=== PATIENT | male | born 1995 | race Two or more races ===

== ENCOUNTER 2023-06-10 07:04 | Inpatient (IN) | payer OTHER ==
[~2023-06-10] VITALS: Ht 170.2 cm; Wt 192.3 kg
[2023-06-10] MEDS ORDERED: FUROSEMIDE 40 MG/4 ML VIAL IV ONE (08:30)
[2023-06-10] MEDS ORDERED: ACETAMINOPHEN ES 500 MG TABLET PO ONE (08:30)
[2023-06-10] MEDS ORDERED: FURO40TA5 PO (09:21)
[2023-06-10] MEDS ORDERED: METO-358 PO (09:21)
[2023-06-10] MEDS ORDERED: APIX5TAB PO (09:21)
[2023-06-10] MEDS ORDERED: ACETAMINOPHEN ES 500 MG TABLET ONE (10:11)
[2023-06-10] MEDS ORDERED: FUROSEMIDE 40 MG/4 ML VIAL ONE (10:11)
[2023-06-10 10:16] LABS: BASOPHILS # (AUTO) 0.1 K/uL (0.0-0.2); BASOPHILS % (AUTO) 0.7 % (0.0-2.0); EOSINOPHILS % (AUTO) 0.3 % (0.0-6.0); HEMATOCRIT 45 % (39-51); HEMOGLOBIN 14.9 g/dL (13.5-17.5); LYMPHOCYTES # (AUTO) 0.7 K/uL (0.8-4.8); LYMPHOCYTES % (AUTO) 7.1 % (20.0-44.0); MEAN CORPUSCULAR HEMOGLOBIN 28 PG (26.0-33.0); MEAN CORPUSCULAR HGB CONC 33 g/dl (31.0-36.0); MEAN CORPUSCULAR VOLUME 85 fL (80-96); MONOCYTES # (AUTO) 0.7 K/uL (0.1-1.30); MONOCYTES % (AUTO) 7.1 % (2.0-12.0); NEUTROPHILS # (AUTO) 8.2 K/uL (1.8-8.9); NEUTROPHILS % (AUTO) 84.8 % (43.0-81.0); PLATELET COUNT (AUTO) 274 K/uL (150-450); RED BLOOD CELL COUNT(AUTO) 5.29 MIL/uL (4.5-6.0); RED CELL DISTRIBUTION WIDTH 15.4 % (11.5-15.0); WHITE BLOOD COUNT (AUTO) 9.6 K/uL (4.3-11.0)
[2023-06-10 10:17] LABS: CALCIUM, SERUM 8.7 mg/dL (8.5-10.1); CARBON DIOXIDE 28 mmol/L (21-32); CHLORIDE 100 mmol/L (98-107); CREATININE 1.4 mg/dL (0.6-1.3); GLUCOSE 106 mg/dL (74-106); POTASSIUM 3.5 mmol/L (3.5-5.1); SODIUM SERUM 134 mmol/L (136-145); UREA NITROGEN, BLOOD 14 mg/dL (7-18)
[2023-06-10 10:28] LABS: INR 1.1 (0.91-1.10); PARTIAL THROMBOPLASTIN TIME 27.2 SEC (24.3-34.3); PROTHROMBIN TIME 11.6 SECS (9.2-11.1)
[2023-06-10 10:29] LABS: ALANINE AMINOTRANSFERASE 29 U/L (12-78); ALBUMIN 2.6 g/dL (3.4-5.0); ALKALINE PHOSPHATASE 90 U/L (46-116); ASPARTATE AMINOTRANSFERASE 31 U/L (15-37); BILIRUBIN,DIRECT 0.4 mg/dL (0.0-0.2); BILIRUBIN,TOTAL 1.5 mg/dL (0.2-1.0); NT-PRO BNP 3117 pg/mL (0-125); TOTAL PROTEIN, SERUM 7.6 g/dL (6.4-8.2)
[2023-06-10] MEDS ORDERED: ASPIRIN 325 MG TABLET PO ONE (10:30)
[2023-06-10] MEDS ORDERED: MAGNESIUM HYDROXIDE 30 ML UDC PO PRN (12:00)
[2023-06-10] MEDS ORDERED: ACETAMINOPHEN 325 MG TABLET PO PRN (12:00)
[2023-06-10] MEDS ORDERED: MAG HYDROX/AL HYDROX/SIMETH 30 ML UDC PO PRN (12:00)
[2023-06-10] MEDS ORDERED: HYDROCODONE/APAP 5/325MG TABLET PO PRN (12:00)
[2023-06-10] MEDS ORDERED: TEMAZEPAM 15 MG CAPSULE PO PRN (12:00)
[2023-06-10] MEDS ORDERED: ONDANSETRON HCL/PF 4 MG/2 ML VIAL IVP PRN (12:00)
[2023-06-10] MEDS ORDERED: ENOXAPARIN SODIUM 40 MG/0.4 ML DISP.SYRIN SQ SCH (12:00)
[2023-06-10] MEDS ORDERED: Z GUARD REMEDY 4 OZ OINT TP PRN (12:00)
[2023-06-10] MEDS ORDERED: MORPHINE SULFATE INJ 4 MG/ML DISP.SYRIN IV PRN (12:30)
[2023-06-10] MEDS ORDERED: CEFTRIAXONE 1 G in IV D5W 50 ML IV SCH (13:00)
[2023-06-10] MEDS: METOPROLOL SUCCINATE 50 MG TAB.SR.24H PO SCH (13:45)
[2023-06-10] MEDS ORDERED: CEFTRIAXONE 1GM BAG (ER ONLY) 50 ML IV ONE (14:08)
[2023-06-10] MEDS ORDERED: METOPROLOL SUCCINATE 25 MG TAB.SR.24H ONE (14:08)
[2023-06-10] MEDS ORDERED: ASPIRIN 325 MG TABLET ONE (14:09)
[2023-06-10 20:00] VITALS: BP 139/93; TEMP 98.1; O2SAT 97
[2023-06-10] MEDS: APIXABAN 5 MG TABLET PO SCH (20:21)
[2023-06-10 22:57] VITALS: BP 139/93; TEMP 98.1; O2SAT 97
[2023-06-11 03:45] VITALS: BP 132/108; TEMP 97.9; O2SAT 98
[2023-06-11 07:00] VITALS: BP_SYST 129; BP_SYST 153; BP_DIAS 106; BP_DIAS 74; TEMP 97.7; TEMP 98.4; O2SAT 95; O2SAT 96
[2023-06-11 07:21] LABS: BASOPHILS # (AUTO) 0.1 K/uL (0.0-0.2); BASOPHILS % (AUTO) 0.6 % (0.0-2.0); HEMATOCRIT 44 % (39-51); HEMOGLOBIN 14.5 g/dL (13.5-17.5); LYMPHOCYTES # (AUTO) 0.7 K/uL (0.8-4.8); LYMPHOCYTES % (AUTO) 8.3 % (20.0-44.0); MEAN CORPUSCULAR HEMOGLOBIN 29 PG (26.0-33.0); MEAN CORPUSCULAR HGB CONC 33 g/dl (31.0-36.0); MEAN CORPUSCULAR VOLUME 86 fL (80-96); NEUTROPHILS % (AUTO) 80.1 % (43.0-81.0); PLATELET COUNT (AUTO) 269 K/uL (150-450); RED BLOOD CELL COUNT(AUTO) 5.06 MIL/uL (4.5-6.0); RED CELL DISTRIBUTION WIDTH 15.2 % (11.5-15.0); WHITE BLOOD COUNT (AUTO) 8.7 K/uL (4.3-11.0)
[2023-06-11 08:13] LABS: CALCIUM, SERUM 8.5 mg/dL (8.5-10.1); CREATININE 1.3 mg/dL (0.6-1.3); PHOSPHORUS 4.7 mg/dL (2.5-4.9); POTASSIUM 3.7 mmol/L (3.5-5.1)
[2023-06-11] MEDS: PANTOPRAZOLE 40 MG TABLET.DR PO SCH (08:26)
[2023-06-11 08:40] LABS: THYROID STIMULATING HORMONE 2.121 uIU/mL (0.358-3.74)
[2023-06-11] MEDS ORDERED: FUROSEMIDE 40 MG/4 ML VIAL IV SCH (09:00)
[2023-06-11] MEDS: ASPIRIN EC 325 MG TABLET.DR PO SCH (09:06)
[2023-06-11] MEDS: APIXABAN 5 MG TABLET PO SCH ×2 (09:07→17:01)
[2023-06-11] MEDS: POTASSIUM CHLORIDE 20 MEQ TAB.PRT.SR PO SCH ×3 (09:38→11:21)
[2023-06-11] MEDS: FUROSEMIDE 100 MG/10 ML VIAL IV SCH ×3 (10:20→17:01)
[2023-06-11 11:30] VITALS: BP 131/88; TEMP 100.6; O2SAT 96
[2023-06-11 11:32] VITALS: BP 131/88; TEMP 100.6; O2SAT 96
[2023-06-11] MEDS: METOPROLOL SUCCINATE 50 MG TAB.SR.24H PO SCH (13:22)
[2023-06-11 16:00] VITALS: BP 109/63; TEMP 98.6; O2SAT 100
[2023-06-11 20:30] VITALS: BP 131/94; TEMP 97.5; O2SAT 100
[2023-06-12 00:30] VITALS: BP 129/89; TEMP 98.8; O2SAT 95
[2023-06-12 04:21] VITALS: BP 136/107; O2SAT 100
[2023-06-12 06:39] LABS: BASOPHILS # (AUTO) 0.1 K/uL (0.0-0.2); BASOPHILS % (AUTO) 0.5 % (0.0-2.0); HEMATOCRIT 42 % (39-51); HEMOGLOBIN 13.8 g/dL (13.5-17.5); MEAN CORPUSCULAR HEMOGLOBIN 28 PG (26.0-33.0); MEAN CORPUSCULAR HGB CONC 33 g/dl (31.0-36.0); MEAN CORPUSCULAR VOLUME 86 fL (80-96); MONOCYTES % (AUTO) 9.2 % (2.0-12.0); NEUTROPHILS % (AUTO) 81.3 % (43.0-81.0); PLATELET COUNT (AUTO) 223 K/uL (150-450); RED BLOOD CELL COUNT(AUTO) 4.85 MIL/uL (4.5-6.0); RED CELL DISTRIBUTION WIDTH 15.4 % (11.5-15.0); WHITE BLOOD COUNT (AUTO) 11.1 K/uL (4.3-11.0)
[2023-06-12 06:49] LABS: ABG BASE EXCESS 1.9 mmol/L; ABG OXYGEN SATURATION 96.9 % (92.0-98.5); ABG PCO2 41.8 mmHg (35.0-45.0); ABG PH 7.422 (7.350-7.450); ABG PO2 92.8 mmHg (75.0-100.0); ABG TOTAL HEMOGLOBIN 15.1 G/dL (13.5-18.0); AaDO2 144.3 mmHg; COHb 1.2 % (0.5-1.5); MetHb 0.3 % (0.0-1.5); O2Hb 95.4 % (94.0-97.0); SITE, ABG Left Radial; VENT MODE, BG 5L NC
[2023-06-12 07:25] LABS: ALBUMIN 2.2 g/dL (3.4-5.0); BILIRUBIN,TOTAL 1.9 mg/dL (0.2-1.0); CALCIUM, SERUM 7.9 mg/dL (8.5-10.1); CREATININE 1.6 mg/dL (0.6-1.3); MAGNESIUM 1.8 mg/dL (1.8-2.4); PHOSPHORUS 5.1 mg/dL (2.5-4.9); POTASSIUM 3.8 mmol/L (3.5-5.1); TOTAL PROTEIN, SERUM 7.1 g/dL (6.4-8.2)
[2023-06-12 07:30] VITALS: BP 132/96; TEMP 97.7; O2SAT 97
[2023-06-12] MEDS: ASPIRIN EC 325 MG TABLET.DR PO SCH (08:37)
[2023-06-12] MEDS: PANTOPRAZOLE 40 MG TABLET.DR PO SCH (08:37)
[2023-06-12] MEDS: APIXABAN 5 MG TABLET PO SCH ×2 (08:48→16:19)
[2023-06-12] MEDS: FUROSEMIDE 100 MG/10 ML VIAL IV SCH ×3 (09:30→16:19)
[2023-06-12] MEDS: POTASSIUM CHLORIDE 20 MEQ TAB.PRT.SR PO SCH ×3 (09:30→11:30)
[2023-06-12] MEDS: SPIRONOLACTONE 25 MG TABLET PO SCH (09:30)
[2023-06-12] MEDS: METOPROLOL SUCCINATE 50 MG TAB.SR.24H PO SCH (12:17)
[2023-06-12 12:30] VITALS: BP 113/84; TEMP 98.6; O2SAT 96
[2023-06-12 16:00] VITALS: BP 124/83; TEMP 98.6; O2SAT 97
[2023-06-12 21:20] VITALS: BP 122/83; TEMP 98.1; O2SAT 98
[2023-06-13] VITALS: BP 163/113; TEMP 98.4; O2SAT 98
[2023-06-13 04:00] VITALS: BP 150/110; TEMP 98.1; O2SAT 100
[2023-06-13 06:54] LABS: BASOPHILS % (AUTO) 0.4 % (0.0-2.0); EOSINOPHILS % (AUTO) 0.1 % (0.0-6.0); HEMATOCRIT 41 % (39-51); HEMOGLOBIN 13.6 g/dL (13.5-17.5); LYMPHOCYTES # (AUTO) 1.3 K/uL (0.8-4.8); LYMPHOCYTES % (AUTO) 15.1 % (20.0-44.0); MEAN CORPUSCULAR HEMOGLOBIN 29 PG (26.0-33.0); MEAN CORPUSCULAR HGB CONC 33 g/dl (31.0-36.0); MEAN CORPUSCULAR VOLUME 87 fL (80-96); MONOCYTES % (AUTO) 10.7 % (2.0-12.0); NEUTROPHILS # (AUTO) 6.6 K/uL (1.8-8.9); NEUTROPHILS % (AUTO) 73.7 % (43.0-81.0); PLATELET COUNT (AUTO) 200 K/uL (150-450); RED BLOOD CELL COUNT(AUTO) 4.76 MIL/uL (4.5-6.0); RED CELL DISTRIBUTION WIDTH 15.3 % (11.5-15.0); WHITE BLOOD COUNT (AUTO) 8.9 K/uL (4.3-11.0)
[2023-06-13 07:52] LABS: BILIRUBIN,TOTAL 1.4 mg/dL (0.2-1.0); CREATININE 1.5 mg/dL (0.6-1.3); POTASSIUM 3.5 mmol/L (3.5-5.1); TOTAL PROTEIN, SERUM 6.8 g/dL (6.4-8.2)
[2023-06-13 08:00] VITALS: BP 141/103; TEMP 97.8; O2SAT 100
[2023-06-13] MEDS: PANTOPRAZOLE 40 MG TABLET.DR PO SCH (08:25)
[2023-06-13] MEDS: SPIRONOLACTONE 25 MG TABLET PO SCH (08:53)
[2023-06-13] MEDS: ASPIRIN EC 325 MG TABLET.DR PO SCH (08:54)
[2023-06-13] MEDS: APIXABAN 5 MG TABLET PO SCH ×2 (08:54→16:23)
[2023-06-13 12:00] VITALS: BP 151/99; TEMP 99; O2SAT 95
[2023-06-13] MEDS: METOPROLOL SUCCINATE 50 MG TAB.SR.24H PO SCH (13:23)
[2023-06-13 16:00] VITALS: BP 154/115; TEMP 99; O2SAT 94
[2023-06-13 20:00] VITALS: BP 106/80; TEMP 99.7; O2SAT 99
[2023-06-14] VITALS: BP 142/106; TEMP 99.3; O2SAT 96
[2023-06-14 04:00] VITALS: BP 138/99; TEMP 97.5; O2SAT 100
[2023-06-14 07:37] LABS: CALCIUM, SERUM 7.9 mg/dL (8.5-10.1); CREATININE 1.2 mg/dL (0.6-1.3); MAGNESIUM 2.2 mg/dL (1.8-2.4); PHOSPHORUS 4.2 mg/dL (2.5-4.9); POTASSIUM 3.9 mmol/L (3.5-5.1)
[2023-06-14 08:00] VITALS: BP 127/93; TEMP 98.1; O2SAT 99
[2023-06-14] MEDS: PANTOPRAZOLE 40 MG TABLET.DR PO SCH (08:51)
[2023-06-14] MEDS: ASPIRIN EC 325 MG TABLET.DR PO SCH (08:51)
[2023-06-14] MEDS: SPIRONOLACTONE 25 MG TABLET PO SCH (08:52)
[2023-06-14] MEDS: APIXABAN 5 MG TABLET PO SCH ×2 (08:53→16:50)
[2023-06-14 12:00] VITALS: BP 124/94; TEMP 98.2; O2SAT 98
[2023-06-14 12:11] LABS: BASOPHILS % (AUTO) 0.7 % (0.0-2.0); EOSINOPHILS # (AUTO) 0.1 K/uL (0.0-0.7); HEMATOCRIT 42 % (39-51); HEMOGLOBIN 13.5 g/dL (13.5-17.5); LYMPHOCYTES # (AUTO) 1.8 K/uL (0.8-4.8); LYMPHOCYTES % (AUTO) 25.9 % (20.0-44.0); MEAN CORPUSCULAR HEMOGLOBIN 28 PG (26.0-33.0); MEAN CORPUSCULAR HGB CONC 32 g/dl (31.0-36.0); MEAN CORPUSCULAR VOLUME 87 fL (80-96); MONOCYTES # (AUTO) 0.7 K/uL (0.1-1.30); MONOCYTES % (AUTO) 9.7 % (2.0-12.0); NEUTROPHILS # (AUTO) 4.4 K/uL (1.8-8.9); NEUTROPHILS % (AUTO) 62.7 % (43.0-81.0); PLATELET COUNT (AUTO) 210 K/uL (150-450); RED BLOOD CELL COUNT(AUTO) 4.86 MIL/uL (4.5-6.0); RED CELL DISTRIBUTION WIDTH 15.5 % (11.5-15.0)
[2023-06-14] MEDS: METOPROLOL SUCCINATE 50 MG TAB.SR.24H PO SCH (12:51)
[2023-06-14 14:44] LABS: CREATININE, URINE 123.1 MG/DL (30.0-125.0); URINE TOTAL PROTEIN 286.9 mg/dL (0-11.9)
[2023-06-14 15:33] LABS: APPEARANCE,URINE CLEAR (CLEAR); BILIRUBIN,URINE 1+ (NEGATIVE); BLOOD, URINE 1+ Ery/uL (NEGATIVE); COLOR,URINE YELLOW (YELLOW); KETONES,URINE NEGATIVE (NEGATIVE); LEUKOCYTE ESTERASE ,URINE NEGATIVE (NEGATIVE); NITRITE, URINE NEGATIVE (NEGATIVE); PROTEIN,URINE 3+ mg/dl (NEGATIVE); UGLUCOSE NEGATIVE (NEGATIVE)
[2023-06-14 15:36] LABS: EOSINOPHIL,URINE None Seen
[2023-06-14 15:49] LABS: ADD URINE CULTURE NO; BACTERIA,URINE Few /HPF (None Seen); SQUAMOUS EPITHELIAL CELL,UR Few /HPF (None Seen); WBC,URINE 0-2 /HPF (0-3)
[2023-06-14 15:50] LABS: COARSE GRANULAR CASTS,URINE Few /LPF (None Seen)
[2023-06-14 16:00] VITALS: BP 130/83; TEMP 98.1; O2SAT 100
[2023-06-14 20:00] VITALS: BP 111/73; TEMP 97.7; O2SAT 100
[2023-06-15] VITALS: BP 123/89; TEMP 97.5; O2SAT 100
[2023-06-15 05:00] VITALS: BP 144/105; TEMP 97.5; O2SAT 100
[2023-06-15 07:18] LABS: BASOPHILS # (AUTO) 0.1 K/uL (0.0-0.2); BASOPHILS % (AUTO) 0.7 % (0.0-2.0); EOSINOPHILS # (AUTO) 0.1 K/uL (0.0-0.7); HEMATOCRIT 43 % (39-51); HEMOGLOBIN 13.8 g/dL (13.5-17.5); LYMPHOCYTES # (AUTO) 2.2 K/uL (0.8-4.8); MEAN CORPUSCULAR HEMOGLOBIN 28 PG (26.0-33.0); MEAN CORPUSCULAR HGB CONC 32 g/dl (31.0-36.0); MEAN CORPUSCULAR VOLUME 87 fL (80-96); MONOCYTES # (AUTO) 0.7 K/uL (0.1-1.30); MONOCYTES % (AUTO) 9.9 % (2.0-12.0); NEUTROPHILS # (AUTO) 4.3 K/uL (1.8-8.9); NEUTROPHILS % (AUTO) 58.4 % (43.0-81.0); PLATELET COUNT (AUTO) 233 K/uL (150-450); RED BLOOD CELL COUNT(AUTO) 4.97 MIL/uL (4.5-6.0); RED CELL DISTRIBUTION WIDTH 15.4 % (11.5-15.0); WHITE BLOOD COUNT (AUTO) 7.4 K/uL (4.3-11.0)
[2023-06-15] MEDS: PANTOPRAZOLE 40 MG TABLET.DR PO SCH (07:36)
[2023-06-15 07:40] LABS: BILIRUBIN,TOTAL 0.7 mg/dL (0.2-1.0); CALCIUM, SERUM 8.3 mg/dL (8.5-10.1); CREATININE 1.3 mg/dL (0.6-1.3); MAGNESIUM 2.2 mg/dL (1.8-2.4); PHOSPHORUS 4.7 mg/dL (2.5-4.9); POTASSIUM 3.6 mmol/L (3.5-5.1); TOTAL PROTEIN, SERUM 7.2 g/dL (6.4-8.2)
[2023-06-15] MEDS: SPIRONOLACTONE 25 MG TABLET PO SCH (08:29)
[2023-06-15] MEDS: ASPIRIN EC 325 MG TABLET.DR PO SCH (08:29)
[2023-06-15] MEDS: APIXABAN 5 MG TABLET PO SCH ×2 (08:30→16:25)
[2023-06-15 08:42] VITALS: BP 145/105; TEMP 98.9; O2SAT 99
[2023-06-15] MEDS: METOPROLOL SUCCINATE 50 MG TAB.SR.24H PO SCH (12:30)
[2023-06-15 14:29] VITALS: BP 150/110; TEMP 98.5; O2SAT 99
[2023-06-15] MEDS ORDERED: PANT40TA49 PO (14:51)
[2023-06-15] MEDS ORDERED: SPIR25TA6 PO (14:51)
[2023-06-15] MEDS ORDERED: ASPI-1100 PO (14:51)
[2023-06-15 16:19] VITALS: BP 154/97; TEMP 98.2; O2SAT 97
[2023-06-15 22:27] LABS: EOSINOPHILS % (MANUAL) 1 % (0-4); LYMPHOCYTES % (MANUAL) 38 % (16-48); MONOCYTES % (MANUAL) 8 % (0-11.0); NEUTROPHILS % (MANUAL) 53 (42-76); PLATELET ESTIMATE ADEQUATE
[2023-06-16 08:11] LABS: PTH, INTACT 109 pg/mL (15-65)
[2023-06-16 10:07] LABS: *SPE A/G RATIO 0.4 (0.7-1.7); *SPE ALPHA-1-GLOBULIN 0.3 g/dL (0.0-0.4); *SPE ALPHA-2-GLOBULIN 0.8 g/dL (0.4-1.0); *SPE BETA GLOBULIN 0.7 g/dL (0.7-1.3); *SPE GLOBULIN, TOTAL 4.5 g/dL (2.2-3.9); *SPE PROTEIN TOTAL 6.5 g/dL (6.0-8.5); *SPEGAMMA GLOBULIN 2.7 g/dL (0.4-1.8)
== END 2023-06-15 18:30 | disposition home or self-care (01) | DRG 280 ==
LOC: ER 07:11 → TRANSITION 11:24 → TELE 17:07
PROVIDERS: ADMIT Nurse Practitioner Acute Care; ATTEND Student in an Organized Health Care Education/Training Program
PROC: 5A09457 Assistance with Respiratory Ventilation, 24-96 Consecutive Hours, Continuous Positive Airway Pressure (ICD-10-PCS; principal; 2023-06-13)
DX: I13.0 Hypertensive heart and chronic kidney disease with heart failure and stage 1 through stage 4 chronic kidney disease, or unspecified chronic kidney disease (principal); I21.A1 Myocardial infarction type 2; I50.23 Acute on chronic systolic (congestive) heart failure; J96.01 Acute respiratory failure with hypoxia; N17.0 Acute kidney failure with tubular necrosis; Z68.44 Body mass index [BMI] 60.0-69.9, adult; E87.1 Hypo-osmolality and hyponatremia; I42.9 Cardiomyopathy, unspecified; I16.0 Hypertensive urgency; G47.33 Obstructive sleep apnea (adult) (pediatric); N18.9 Chronic kidney disease, unspecified; Z88.0 Allergy status to penicillin; Z79.899 Other long term (current) drug therapy; Z79.01 Long term (current) use of anticoagulants; Z86.718 Personal history of other venous thrombosis and embolism; Z91.199 Patient's noncompliance with other medical treatment and regimen due to unspecified reason; E66.01 Morbid (severe) obesity due to excess calories; F19.90 Other psychoactive substance use, unspecified, uncomplicated
CPT/HCPCS: 36415; 36600; 71045-TC; 76770-TC; 80048-TC; 80053-TC; 80061-TC; 80076-TC; 81001; 82550-TC; 82553; 82570-TC; 82803-TC; 83735-TC; 83880; 83970; 84100-TC; 84155; 84165; 84300-TC; 84443-TC; 84484-TC; 85025-TC; 85730-TC; 93307-TC; 93970-TC; 94660; 94799-TC; A4223; A4623; G0378; J0696; J1940; J2405; J7060

== ENCOUNTER 2023-12-02 11:25 | Inpatient (IN) | payer OTHER ==
[~2023-12-02] VITALS: Ht 175.3 cm; Wt 155.1 kg
[~2023-12-02 11:25] MED LIST: APIX5TAB PO; ASPI-1100 PO; METO-358 PO; PANT40TA49 PO; SPIR25TA6 PO
[2023-12-02] MEDS ORDERED: FUROSEMIDE 40 MG/4 ML VIAL ONE (11:59)
[2023-12-02] MEDS ORDERED: VANCOMYCIN 1 GM /D5W 250 ML PB IV ONE (11:59)
[2023-12-02] MEDS ORDERED: HYDROCODONE/APAP 5/325MG TABLET ONE (12:00)
[2023-12-02] MEDS: HYDROCODONE/APAP 5/325MG TABLET PO ONE (12:05)
[2023-12-02] MEDS: FUROSEMIDE 40 MG/4 ML VIAL IV ONE (12:08)
[2023-12-02] MEDS: VANCOMYCIN 1 GM in IV D5W 250 ML IV ONE (12:10)
[2023-12-02] MEDS ORDERED: POTA-88 PO (12:12)
[2023-12-02] MEDS ORDERED: FURO40TA5 PO (12:12)
[2023-12-02 12:19] LABS: BASOPHILS % (AUTO) 0.4 % (0.0-2.0); EOSINOPHILS % (AUTO) 0.1 % (0.0-6.0); HEMATOCRIT 44 % (39-51); HEMOGLOBIN 14.1 g/dL (13.5-17.5); LYMPHOCYTES # (AUTO) 0.6 K/uL (0.8-4.8); LYMPHOCYTES % (AUTO) 5.2 % (20.0-44.0); MEAN CORPUSCULAR HEMOGLOBIN 26 PG (26.0-33.0); MEAN CORPUSCULAR HGB CONC 32 g/dl (31.0-36.0); MEAN CORPUSCULAR VOLUME 80 fL (80-96); MONOCYTES # (AUTO) 0.5 K/uL (0.1-1.30); MONOCYTES % (AUTO) 4.8 % (2.0-12.0); NEUTROPHILS % (AUTO) 89.5 % (43.0-81.0); PLATELET COUNT (AUTO) 235 K/uL (150-450); RED BLOOD CELL COUNT(AUTO) 5.46 MIL/uL (4.5-6.0); RED CELL DISTRIBUTION WIDTH 20.2 % (11.5-15.0); WHITE BLOOD COUNT (AUTO) 11.2 K/uL (4.3-11.0)
[2023-12-02 12:33] LABS: LACTIC ACID 2.6 mmol/L (0.4-2.0)
[2023-12-02 12:36] LABS: INR 1.55 (0.91-1.10); PARTIAL THROMBOPLASTIN TIME 44.6 SEC (24.3-34.3)
[2023-12-02 12:37] LABS: CALCIUM, SERUM 8.5 mg/dL (8.5-10.1); CARBON DIOXIDE 27 mmol/L (21-32); CHLORIDE 91 mmol/L (98-107); CREATININE 1.2 mg/dL (0.6-1.3); GLUCOSE 109 mg/dL (74-106); POTASSIUM 3.2 mmol/L (3.5-5.1); SODIUM SERUM 126 mmol/L (136-145); UREA NITROGEN, BLOOD 20 mg/dL (7-18)
[2023-12-02 12:42] LABS: ALANINE AMINOTRANSFERASE 15 U/L (12-78); ALBUMIN 1.6 g/dL (3.4-5.0); ALKALINE PHOSPHATASE 166 U/L (46-116); ASPARTATE AMINOTRANSFERASE 35 U/L (15-37); BILIRUBIN,DIRECT 2.2 mg/dL (0.0-0.2); BILIRUBIN,TOTAL 3.6 mg/dL (0.2-1.0); TOTAL PROTEIN, SERUM 7.1 g/dL (6.4-8.2)
[2023-12-02] MEDS ORDERED: MAG HYDROX/AL HYDROX/SIMETH 30 ML UDC PO PRN (13:30)
[2023-12-02] MEDS ORDERED: MAGNESIUM HYDROXIDE 30 ML UDC PO PRN (13:30)
[2023-12-02] MEDS ORDERED: ACETAMINOPHEN 325 MG TABLET PO PRN (13:30)
[2023-12-02] MEDS ORDERED: Z GUARD REMEDY 4 OZ OINT TP PRN (13:30)
[2023-12-02] MEDS ORDERED: ONDANSETRON HCL/PF 4 MG/2 ML VIAL IVP PRN (13:30)
[2023-12-02 13:45] LABS: APPEARANCE,URINE CLEAR (CLEAR); BILIRUBIN,URINE 2+ (NEGATIVE); BLOOD, URINE 2+ Ery/uL (NEGATIVE); COLOR,URINE YELLOW (YELLOW); KETONES,URINE NEGATIVE (NEGATIVE); LEUKOCYTE ESTERASE ,URINE NEGATIVE (NEGATIVE); NITRITE, URINE NEGATIVE (NEGATIVE); PROTEIN,URINE 3+ mg/dl (NEGATIVE); UGLUCOSE NEGATIVE (NEGATIVE)
[2023-12-02 13:51] LABS: ADD URINE CULTURE NO; BACTERIA,URINE Rare /HPF (None Seen); SQUAMOUS EPITHELIAL CELL,UR Rare /HPF (None Seen); WBC,URINE 0-2 /HPF (0-3)
[2023-12-02] MEDS: VANCOMYCIN 500 MG in IV D5W 100ml IV ONE (14:29)
[2023-12-02 15:07] VITALS: BP 128/111; TEMP 99.3; O2SAT 96
[2023-12-02 16:53] VITALS: BP 128/111; TEMP 99.3; O2SAT 96
[2023-12-02] MEDS: APIXABAN 5 MG TABLET PO SCH (17:23)
[2023-12-02 18:00] VITALS: BP 129/95; TEMP 99.1; TEMP 99.2; O2SAT 98
[2023-12-02] MEDS: HYDROCODONE/APAP 5/325MG TABLET PO PRN (18:06)
[2023-12-02] MEDS: FUROSEMIDE 40 MG/4 ML VIAL IV SCH (21:17)
[2023-12-02 22:00] VITALS: BP 122/81; TEMP 97.3; O2SAT 98
[2023-12-02] MEDS: VANCOMYCIN 1.5 GM in IV D5W 500 ML IV SCH (23:03)
[2023-12-03] VITALS (10 sets, daily range): BP systolic 112–144; BP diastolic 81–94; TEMP 97.5–99.3; O2SAT 95–98
[2023-12-03 06:38] LABS: BASOPHILS % (AUTO) 0.3 % (0.0-2.0); HEMATOCRIT 43 % (39-51); HEMOGLOBIN 14.1 g/dL (13.5-17.5); LYMPHOCYTES # (AUTO) 0.8 K/uL (0.8-4.8); LYMPHOCYTES % (AUTO) 6.4 % (20.0-44.0); MEAN CORPUSCULAR HEMOGLOBIN 27 PG (26.0-33.0); MEAN CORPUSCULAR HGB CONC 33 g/dl (31.0-36.0); MEAN CORPUSCULAR VOLUME 81 fL (80-96); MONOCYTES # (AUTO) 0.7 K/uL (0.1-1.30); MONOCYTES % (AUTO) 5.7 % (2.0-12.0); NEUTROPHILS # (AUTO) 10.5 K/uL (1.8-8.9); NEUTROPHILS % (AUTO) 87.6 % (43.0-81.0); PLATELET COUNT (AUTO) 239 K/uL (150-450); RED BLOOD CELL COUNT(AUTO) 5.29 MIL/uL (4.5-6.0)
[2023-12-03 06:58] LABS: CALCIUM, SERUM 8.5 mg/dL (8.5-10.1); MAGNESIUM 1.8 mg/dL (1.8-2.4); PHOSPHORUS 3.9 mg/dL (2.5-4.9); POTASSIUM 3.1 mmol/L (3.5-5.1)
[2023-12-03] MEDS: POTASSIUM CHLORIDE 20 MEQ TAB.PRT.SR PO SCH (08:05)
[2023-12-03] MEDS: POTASSIUM CHLORIDE 20 MEQ TAB.PRT.SR PO ONE (09:57)
[2023-12-03] MEDS: VANCOMYCIN HCL 1.25 GM in IV D5W 250 ML IV SCH (09:58)
[2023-12-03 11:40] LABS: APPEARANCE,URINE CLEAR (CLEAR); BILIRUBIN,URINE NEGATIVE (NEGATIVE); BLOOD, URINE TRACE-INTA Ery/uL (NEGATIVE); COLOR,URINE YELLOW (YELLOW); KETONES,URINE NEGATIVE (NEGATIVE); LEUKOCYTE ESTERASE ,URINE NEGATIVE (NEGATIVE); NITRITE, URINE NEGATIVE (NEGATIVE); PH,URINE 6.5 (5.0-8.0); PROTEIN,URINE 1+ mg/dl (NEGATIVE); UGLUCOSE NEGATIVE (NEGATIVE); UROBILINOGEN,URINE 0.2 EU/dL (0.2)
[2023-12-03 11:53] LABS: CREATININE, URINE < 13.0 MG/DL (30.0-125.0); URINE SODIUM, RANDOM 36 mmol/l (40-220); URINE TOTAL PROTEIN 40.9 mg/dL (0-11.9)
[2023-12-03 12:18] LABS: ADD URINE CULTURE NO; BACTERIA,URINE 1+ /HPF (None Seen); RBC,URINE 0-2 /HPF (0-2); SQUAMOUS EPITHELIAL CELL,UR 0-2 /HPF (None Seen); WBC,URINE NONE SEEN /HPF (0-3)
[2023-12-03 12:52] LABS: EOSINOPHIL,URINE None Seen
[2023-12-03] MEDS ORDERED: SPIRONOLACTONE 25 MG TABLET PO SCH (15:30)
[2023-12-03] MEDS: SPIRONOLACTONE 25 MG TABLET PO SCH (15:39)
[2023-12-03] MEDS: LOSARTAN POTASSIUM 25 MG TABLET PO SCH (16:41)
[2023-12-03] MEDS: CARVEDILOL 3.125 MG TABLET PO SCH (16:41)
[2023-12-03] MEDS ORDERED: CARVEDILOL 3.125 MG TABLET PO SCH (17:00)
[2023-12-03] MEDS ORDERED: LOSARTAN POTASSIUM 25 MG TABLET PO SCH (17:00)
[2023-12-04] VITALS (8 sets, daily range): BP systolic 109–127; BP diastolic 79–93; TEMP 98.2–100.6; O2SAT 95–100
[2023-12-04 07:40] LABS: BASOPHILS % (AUTO) 0.2 % (0.0-2.0); EOSINOPHILS % (AUTO) 0.2 % (0.0-6.0); HEMATOCRIT 44 % (39-51); HEMOGLOBIN 14.6 g/dL (13.5-17.5); LYMPHOCYTES % (AUTO) 9.5 % (20.0-44.0); MEAN CORPUSCULAR HEMOGLOBIN 27 PG (26.0-33.0); MEAN CORPUSCULAR HGB CONC 33 g/dl (31.0-36.0); MEAN CORPUSCULAR VOLUME 82 fL (80-96); MONOCYTES # (AUTO) 1.1 K/uL (0.1-1.30); MONOCYTES % (AUTO) 10.1 % (2.0-12.0); NEUTROPHILS # (AUTO) 8.5 K/uL (1.8-8.9); PLATELET COUNT (AUTO) 256 K/uL (150-450); RED BLOOD CELL COUNT(AUTO) 5.45 MIL/uL (4.5-6.0); RED CELL DISTRIBUTION WIDTH 20.8 % (11.5-15.0); WHITE BLOOD COUNT (AUTO) 10.6 K/uL (4.3-11.0)
[2023-12-04 07:43] LABS: BILIRUBIN,TOTAL 3.2 mg/dL (0.2-1.0); CALCIUM, SERUM 8.7 mg/dL (8.5-10.1); MAGNESIUM 2.2 mg/dL (1.8-2.4); PHOSPHORUS 3.6 mg/dL (2.5-4.9); POTASSIUM 3.2 mmol/L (3.5-5.1); TOTAL PROTEIN, SERUM 6.9 g/dL (6.4-8.2)
[2023-12-04 08:03] LABS: THYROID STIMULATING HORMONE 2.21 uIU/mL (0.358-3.74); URIC ACID 8.5 mg/dL (2.6-7.2)
[2023-12-04 08:04] LABS: ALBUMIN 1.3 g/dL (3.4-5.0)
[2023-12-04 22:17] LABS: OSMOLALITY,URINE 163 mOS/kg (340-1090)
[2023-12-05] VITALS: BP 118/83; TEMP 97.7; O2SAT 100
[2023-12-05 04:00] VITALS: BP 107/79; TEMP 97.8; O2SAT 100
[2023-12-05 07:08] LABS: BASOPHILS # (AUTO) 0.1 K/uL (0.0-0.2); BASOPHILS % (AUTO) 0.6 % (0.0-2.0); EOSINOPHILS % (AUTO) 0.1 % (0.0-6.0); HEMATOCRIT 45 % (39-51); HEMOGLOBIN 14.5 g/dL (13.5-17.5); LYMPHOCYTES # (AUTO) 1.2 K/uL (0.8-4.8); LYMPHOCYTES % (AUTO) 7.4 % (20.0-44.0); MEAN CORPUSCULAR HEMOGLOBIN 26 PG (26.0-33.0); MEAN CORPUSCULAR HGB CONC 32 g/dl (31.0-36.0); MEAN CORPUSCULAR VOLUME 81 fL (80-96); MONOCYTES # (AUTO) 1.4 K/uL (0.1-1.30); MONOCYTES % (AUTO) 8.8 % (2.0-12.0); NEUTROPHILS # (AUTO) 13.3 K/uL (1.8-8.9); NEUTROPHILS % (AUTO) 83.1 % (43.0-81.0); PLATELET COUNT (AUTO) 315 K/uL (150-450); RED BLOOD CELL COUNT(AUTO) 5.52 MIL/uL (4.5-6.0); RED CELL DISTRIBUTION WIDTH 19.8 % (11.5-15.0)
[2023-12-05 07:09] LABS: PTH, INTACT 29 pg/mL (15-65)
[2023-12-05 07:40] LABS: CALCIUM, SERUM 8.4 mg/dL (8.5-10.1); CREATININE 1.1 mg/dL (0.6-1.3); POTASSIUM 3.5 mmol/L (3.5-5.1)
[2023-12-05 08:00] VITALS: BP 99/71; TEMP 98.8; O2SAT 100
[2023-12-05 12:00] VITALS: BP 125/73; TEMP 98.8; O2SAT 100
[2023-12-05] MEDS: VANCOMYCIN HCL 1.25 GM in IV D5W 250 ML IV SCH (12:34)
[2023-12-05 16:00] VITALS: BP 120/90; TEMP 99.2; O2SAT 100
[2023-12-05] MEDS: FUROSEMIDE 40 MG/4 ML VIAL IV SCH (16:39)
[2023-12-05 19:01] LABS: APPEARANCE,URINE CLEAR (CLEAR); BILIRUBIN,URINE NEGATIVE (NEGATIVE); BLOOD, URINE NEGATIVE Ery/uL (NEGATIVE); COLOR,URINE YELLOW (YELLOW); KETONES,URINE NEGATIVE (NEGATIVE); LEUKOCYTE ESTERASE ,URINE NEGATIVE (NEGATIVE); NITRITE, URINE NEGATIVE (NEGATIVE); PROTEIN,URINE TRACE mg/dl (NEGATIVE); UGLUCOSE NEGATIVE (NEGATIVE); UROBILINOGEN,URINE 0.2 EU/dL (0.2)
[2023-12-05 19:07] LABS: CREATININE, URINE < 13.0 MG/DL (30.0-125.0); URINE TOTAL PROTEIN 35.5 mg/dL (0-11.9)
[2023-12-05 19:21] LABS: URINE SODIUM, RANDOM 87 mmol/l (40-220)
[2023-12-05 19:25] LABS: ADD URINE CULTURE YES; BACTERIA,URINE 2+ /HPF (None Seen); RBC,URINE 0-2 /HPF (0-2); SQUAMOUS EPITHELIAL CELL,UR Rare /HPF (None Seen); WBC,URINE NONE SEEN /HPF (0-3)
[2023-12-05 20:00] VITALS: BP 118/84; TEMP 100.1; O2SAT 94
[2023-12-05 20:29] LABS: EOSINOPHIL,URINE None Seen
[2023-12-06] VITALS: BP 109/82; TEMP 100; O2SAT 100
[2023-12-06 04:00] VITALS: BP 121/80; TEMP 98.8; O2SAT 100
[2023-12-06 05:12] LABS: *SPE A/G RATIO 0.4 (0.7-1.7); *SPE ALBUMIN 1.9 g/dL (2.9-4.4); *SPE ALPHA-1-GLOBULIN 0.4 g/dL (0.0-0.4); *SPE GLOBULIN, TOTAL 4.4 g/dL (2.2-3.9); *SPE M-SPIKE Not Observed g/dL (Not Observed); *SPE PROTEIN TOTAL 6.3 g/dL (6.0-8.5)
[2023-12-06 07:58] LABS: BASOPHILS % (AUTO) 0.2 % (0.0-2.0); EOSINOPHILS % (AUTO) 0.1 % (0.0-6.0); HEMATOCRIT 45 % (39-51); HEMOGLOBIN 14.2 g/dL (13.5-17.5); LYMPHOCYTES # (AUTO) 1.4 K/uL (0.8-4.8); LYMPHOCYTES % (AUTO) 6.9 % (20.0-44.0); MEAN CORPUSCULAR HEMOGLOBIN 26 PG (26.0-33.0); MEAN CORPUSCULAR HGB CONC 32 g/dl (31.0-36.0); MEAN CORPUSCULAR VOLUME 82 fL (80-96); MONOCYTES # (AUTO) 1.8 K/uL (0.1-1.30); MONOCYTES % (AUTO) 9.2 % (2.0-12.0); NEUTROPHILS # (AUTO) 16.3 K/uL (1.8-8.9); NEUTROPHILS % (AUTO) 83.6 % (43.0-81.0); PLATELET COUNT (AUTO) 323 K/uL (150-450); RED BLOOD CELL COUNT(AUTO) 5.45 MIL/uL (4.5-6.0); RED CELL DISTRIBUTION WIDTH 20.1 % (11.5-15.0); WHITE BLOOD COUNT (AUTO) 19.6 K/uL (4.3-11.0)
[2023-12-06 08:00] VITALS: BP 122/91; TEMP 98.8; TEMP 99.5; O2SAT 100; O2SAT 94
[2023-12-06 08:12] LABS: COMPLEMENT C3, SERUM 160 mg/dL (82-167); COMPLEMENT C4, SERUM 29 mg/dL (12-38)
[2023-12-06 08:21] LABS: CALCIUM, SERUM 8.6 mg/dL (8.5-10.1); CREATININE 0.9 mg/dL (0.6-1.3); MAGNESIUM 2.3 mg/dL (1.8-2.4); PHOSPHORUS 3.7 mg/dL (2.5-4.9); POTASSIUM 3.3 mmol/L (3.5-5.1); TOTAL PROTEIN, SERUM 6.9 g/dL (6.4-8.2)
[2023-12-06 08:23] LABS: ALBUMIN 1.1 g/dL (3.4-5.0)
[2023-12-06] MEDS: POTASSIUM CHLORIDE 20 MEQ TAB.PRT.SR PO ONE (09:34)
[2023-12-06 12:00] VITALS: BP 110/81; TEMP 99; O2SAT 100
[2023-12-06 13:13] LABS: *ANA ANTI-CENTROMERE B AB <0.2 AI (0.0-0.9); *ANA ANTI-DNA(DS) AB, QN <1 IU/mL (0-9); *ANA ANTI-JO-1 <0.2 AI (0.0-0.9); *ANA ANTICHROMATIN ANTIBODY 0.2 AI (0.0-0.9); *ANA RNP ANTIBODIES 0.2 AI (0.0-0.9); *ANA SJOGREN'S ANTI-SS-A <0.2 AI (0.0-0.9); *ANA SJOGREN'S ANTI-SS-B <0.2 AI (0.0-0.9); *ANAANTI-SCLERODERMA-70 AB <0.2 AI (0.0-0.9); *ANASMITH AB <0.2 AI (0.0-0.9)
[2023-12-06] MEDS ORDERED: CARV3.12 PO (14:16)
[2023-12-06] MEDS ORDERED: FURO-144 PO (14:16)
[2023-12-06] MEDS ORDERED: SPIR25TA6 PO (14:16)
[2023-12-06] MEDS ORDERED: CEPH-570 PO (14:16)
[2023-12-06] MEDS ORDERED: IOHEXOL-300 100 ML VIAL IV ONE (15:54)
[2023-12-06] MEDS ORDERED: CT SWABBABLE VALVE TRANS SET 1 EA INFUS.SET MC ONE (15:54)
[2023-12-06] MEDS ORDERED: IV NS 0.9% 250 ML IV ONE (15:54)
[2023-12-06 16:00] VITALS: BP 122/79; TEMP 98.7; O2SAT 100
[2023-12-06 20:00] VITALS: BP 123/83; TEMP 98.3; O2SAT 96
[2023-12-07 05:09] LABS: HEPATITIS B SURFACE AB Non Reactive (.)
[2023-12-07 13:34] LABS: ABG BASE EXCESS 2.7 mmol/L; ABG OXYGEN SATURATION 93.8 % (92.0-98.5); ABG PH 7.476 (7.350-7.450); ABG PO2 67.7 mmHg (75.0-100.0); ABG TOTAL HEMOGLOBIN 15.6 G/dL (13.5-18.0); AaDO2 38.9 mmHg; COHb 1.8 % (0.5-1.5); MetHb 0.2 % (0.0-1.5); O2Hb 91.9 % (94.0-97.0); SITE, ABG Right Brachial; VENT MODE, BG ROOM AIR
== END 2023-12-06 21:30 | disposition home or self-care (01) | DRG 194 ==
LOC: ER 11:27 → TELE-TD 14:34 → TELE1 14:37
PROVIDERS: ADMIT Internal Medicine
PROC: 05HF33Z Insertion of Infusion Device into Left Cephalic Vein, Percutaneous Approach (ICD-10-PCS; principal; 2023-12-03)
PROC: B54NZZA Ultrasonography of Left Upper Extremity Veins, Guidance (ICD-10-PCS; 2023-12-03)
PROC: 5A09357 Assistance with Respiratory Ventilation, Less than 24 Consecutive Hours, Continuous Positive Airway Pressure (ICD-10-PCS; 2023-12-05)
DX: I13.0 Hypertensive heart and chronic kidney disease with heart failure and stage 1 through stage 4 chronic kidney disease, or unspecified chronic kidney disease (principal); L03.115 Cellulitis of right lower limb; E44.0 Moderate protein-calorie malnutrition; E87.1 Hypo-osmolality and hyponatremia; E88.09 Other disorders of plasma-protein metabolism, not elsewhere classified; I42.8 Other cardiomyopathies; L03.116 Cellulitis of left lower limb; Z79.01 Long term (current) use of anticoagulants; I16.0 Hypertensive urgency; I50.23 Acute on chronic systolic (congestive) heart failure; Z68.43 Body mass index [BMI] 50.0-59.9, adult; E66.01 Morbid (severe) obesity due to excess calories; G47.33 Obstructive sleep apnea (adult) (pediatric); N18.2 Chronic kidney disease, stage 2 (mild); E87.6 Hypokalemia; I25.10 Atherosclerotic heart disease of native coronary artery without angina pectoris; E80.6 Other disorders of bilirubin metabolism; Z86.718 Personal history of other venous thrombosis and embolism; Z88.0 Allergy status to penicillin; Z91.199 Patient's noncompliance with other medical treatment and regimen due to unspecified reason; M89.8X9 Other specified disorders of bone, unspecified site; S81.801A Unspecified open wound, right lower leg, initial encounter; X58.XXXA Exposure to other specified factors, initial encounter; Y93.9 Activity, unspecified; Y92.009 Unspecified place in unspecified non-institutional (private) residence as the place of occurrence of the external cause
CPT/HCPCS: 36410; 36415; 36600; 71045-TC; 73701-TC; 76770-TC; 80048-TC; 80053-TC; 80076-TC; 80202-TC; 81001; 82550-TC; 82570-TC; 82803-TC; 83605-TC; 83735-TC; 83880; 83935-TC; 83970; 84100-TC; 84155; 84165; 84300-TC; 84443-TC; 84484-TC; 84550-TC; 85025-TC; 85652-TC; 85730-TC; 86225; 86235; 86706; 86803; 87040-TC; 87086-TC; 87340; 93307-TC; 93971-TC; 94760-TC; 94762-TC; 94799-TC; G0378; J1940; J3370; J3371; J7050; J7060; Q9967